=== PATIENT | female | born 1950 | race Caucasian/White ===

== ENCOUNTER 2016-09-10 20:51 | Inpatient (IN) ==
[2016-09-10] MEDS ORDERED: ONDANSETRON 4 MG/2 ML VIAL IV STA (21:36)
[2016-09-10] MEDS ORDERED: SODIUM CHLORIDE 0.9% 1,000 ML IV STA (21:36)
--- NOTE | 2016-09-10 21:36 | Emergency Department Note ---
Arrival - Arrival Chief Complaint: GI Bleed/Rectal Stated Complaint: RECTAL BLEEDING ED Nursing Triage Note: C/C low back pain, dark red rectal bleeding with clots. Has stage [address] Cassidy. Last dose of chemo pills 12/2014. No history of rectal bleeding Mode of Arrival: Ambulatory Time Seen by Provider: 09/10/16 21:35 - History of Present Illness HPI Narrative: Patient complains of bright red rectal bleeding 1 episode today preceded by low back pain. She sees Dr. Cassidy for her colon cancer and still takes oral chemo agents, taking her last one this route today. She says she has had no other problems and little aches and pains that she had experienced were controlled with Motrin. Today's back pain was worse. She denies any fever or chills. She has had some preceding diarrhea as well. Allergies/Adverse Reactions: Allergies Allergy/AdvReac Type Severity Reaction Status Date / Time No Known Allergies Allergy Unverified 09/10/16 21:15 Review of System - Review of System 12 point system: reviewed and no additional remarkable complaints except as stated Medical,Surgical,& Family Hx - Medical History Cardio: History of: Hypertension Endocrine: No history of: Diabetes Mellitus (IDDM), Diabetes Mellitus (NIDDM) Respiratory: History of: Lung Cancer Gastrointestinal: History of: Gastrointestinal Cancer (Stage 4 colon CA) - Surgical History Cardiac Surgeries: Patient Denies: Cardiac Catheterization Abdominal Surgeries: Surgical HX of: Cholecystectomy, Colonoscopy Reproductive Surgeries: Surgical HX of;: Hysterectomy - Social History Smoking Status: Never smoker Frequency of Alcohol Use: None Type of Drug Use: None Exam Physical Examination: General: Patient is well-developed and well-nourished with no acute distress noted. HEENT: The extraocular muscles are intact. Oropharynx i is dry t. There is no erythema or exudate. The tympanic membranes are shiny bilaterally. Neck: There is no adenopathy. Full range of motion is noted without pain. The trachea is midline. No JVD is present. Lungs: There is normal excursion of the chest with the lungs sounding clear bilaterally. No subcostal retractions are present. There is no point tenderness present. Heart: The heart has a regular rate and rhythm with no gallops or murmurs. Abdomen: The abdomen is nontender and nondistended with no rebound, guarding, or masses. Bowel sounds are normal. Hemoccult was noted to be positive Back: The back demonstrates a normal appearance with no evidence of trauma. Genitourinary: Not examined. Extremities: The extremities demonstrate no clubbing, cyanosis, or edema. The visualized range of motion is normal. They appear atraumatic. Neuro: Cranial nerves II through XII are checked and intact. There is no focal motor or sensory deficit seen in the extremities. Skin: Skin is warm and dry with no evidence of rash. Vital Signs: Vital Signs Temperature 99.6 F 09/10/16 21:22 Pulse Rate 112 H 09/10/16 21:22 Respiratory Rate 17 09/10/16 21:22 Blood Pressure 148/84 09/10/16 21:22 O2 Sat by Pulse Oximetry 97 09/10/16 21:10 Course - Consultations Consultation #1: Dr. Cassidy will admit the patient. Time: 23:11 Results - Labs CBC & BMP: 09/10/16 21:36 09/10/16 21:36 Lab Results: I have reviewed the patients labs - Diagnostic Findings Procedure: CT Abdomen and Pelvis: image reviewed by me (Progression of disease in the posterior right hepatic lobe and lung bases. Diverticular disease without evidence of diverticulitis.) Disposition Clinical Impression: Lower gastrointestinal hemorrhage, Metastatic colon cancer with progression Case discussed with: patient, patient's family Disposition: Still a Patient Condition: Stable Time of Disposition: 23:08
[2016-09-10] MEDS ORDERED: MORPHINE 2 MG/1 ML SYRINGE IV STA (21:37)
[2016-09-10 21:42] LABS: Basophils % 0.3 % (0.0-0.8); Eosinophils # 0.7 10*3/uL (0.0-0.87); Eosinophils % 7.3 % (0.00-10.9); Hematocrit 37.1 VOL% (35.7-47.0); Hemoglobin 11.4 GM/DL (12.0-16.0); Immature Granulocytes % 0.2 %; Immature Granulocytes Absolute 0.02 #; Lymphocytes # 4.2 10*3/uL (1.4-4.0); Lymphocytes % 46.3 % (21.3-54.2); Mean Corpuscular HGB Conc 30.7 GM/DL (32-36); Mean Corpuscular Hemoglobin 29 PG (27-34); Mean Corpuscular Volume 94.4 FL (87-102); Mean Platelet Volume 8.8 FL (9.6-12.0); Monocytes # 1.1 10*3/uL (0.11-0.8); Neutrophils # 3.1 10*3/uL (1.4-7.4); Neutrophils % 33.9 % (38.7-73.9); Platelet Count 233 T/CUMM (130-400); Red Blood Count 3.93 MC/CUMM (3.8-5.5); Red Cell Distribution Width 14.6 % (9.3-17.3)
[2016-09-10] MEDS ORDERED: MORPHINE 2 MG/1 ML SYRINGE ONE (21:44)
[2016-09-10] MEDS ORDERED: ONDANSETRON 4 MG/2 ML VIAL ONE (21:44)
[2016-09-10 21:49] LABS: INR 1.1; PT Patient Result 11.2 SECS
--- NOTE | 2016-09-10 21:56 | EKG Report ---
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
[2016-09-10 22:10] LABS: Alanine Aminotransferase 24 U/L (13-56); Albumin 3.2 G/DL (3.4-5.0); Alkaline Phosphatase 74 U/L (45-117); Aspartate Amino Transferase 37 U/L (0-37); Bilirubin,Total < 0.39 MG/DL (0.2-1.0); Blood Urea Nitrogen 13 MG/DL (7-18); Calcium 8.9 MG/DL (8.5-10.1); Glucose 107 MG/DL (74-106); Osmolality,Calculated 280.3 MOS/KG (273-304); Potassium 3.4 MMOL/L (3.5-5.1); Sodium 141 MMOL/L (136-145); Total Protein 8.2 G/DL (6.4-8.3)
[2016-09-10 22:17] LABS: Eosinophils 8 % (0-10); Lymphocytes 49 % (20-55); Segmented Neutrophils 38 % (50-85); Total Cells Counted 100
[2016-09-10 22:18] LABS: Atypical Lymphocytes Few; Platelet Estimate Normal
[2016-09-10 22:19] LABS: Poikilocytosis 1+; Tear Drop Cells Few
--- NOTE | 2016-09-10 23:07 | CT Report ---
CT abdomen pelvis Indication: Colon cancer, rectal bleeding Comparison: PET/CT 02 June 2012 Technique: Axial CT imaging of the abdomen and pelvis is performed with intravenous and oral contrast. Contrast dose is 100 cc of Omnipaque 350. Findings: Multiple pulmonary nodules are present in both lower lungs, largest is 2.[address] abdomen: The liver has a low-density area of poorly defined 4.1 cm in size in the right lobe. Smaller is seen more superiorly 1.3 cm in size. Spleen pancreas and adrenal glands are normal in size and enhancement. No evidence of focal lesion is demonstrated in these solid organs. Gallbladder has been removed. Kidneys are normal in size and enhancement. No evidence of hydronephrosis or nephrolithiasis is seen. The bowel caliber is normal and no wall thickening or adjacent inflammatory change is seen. No evidence of free fluid or free air is present. CT pelvis: There is poorly defined suggestion of some rectal wall thickening. Otherwise the pelvic bowel appears within normal limits. Bladder shows no evidence of abnormality. The pelvic organs show no evidence of abnormality Impression: Multiple hepatic and pulmonary metastatic lesions. Suggestion of some rectal wall thickening, poorly defined. No other abnormality seen. PROCEDURE INTERPRETED AT [facility] DEPARTMENT OF RADIOLOGY Final Report Signed by: Dr. Santo Blancas
[2016-09-10] MEDS ORDERED: traMADol 50 MG TABLET PO PRN (23:12)
[2016-09-10] MEDS ORDERED: diphenhydrAMINE CAP 25 MG CAPSULE PO PRN (23:12)
[2016-09-10] MEDS ORDERED: MYLANTA/LIDO VISC 2:1 300 ML BOTTLE SWISH/SPIT PRN (23:12)
[2016-09-10] MEDS ORDERED: chlorproMAZINE INJ 25 MG in SODIUM CHLORIDE 0.9% 100 ML IV PRN (23:12)
[2016-09-10] MEDS ORDERED: MYLANTA/LIDO VISC 2:1 300 ML BOTTLE SWISH/SWAL PRN (23:12)
[2016-09-10] MEDS ORDERED: LACTULOSE 20 GM/30 ML UDCUP PO PRN (23:12)
[2016-09-10] MEDS ORDERED: ONDANSETRON 4 MG/2 ML VIAL IV PRN (23:12)
[2016-09-10] MEDS ORDERED: MAGNESIUM HYDROXIDE SUSP 30 ML UDCUP PO PRN (23:12)
[2016-09-10] MEDS ORDERED: PROMETHAZINE INJ 25 MG in SODIUM CHLORIDE 0.9% 50 ML IV PRN (23:12)
[2016-09-10] MEDS ORDERED: guaiFENesin 200 MG/10 ML UDCUP PO PRN (23:12)
[2016-09-10] MEDS ORDERED: ACETAMINOPHEN 325 MG TABLET PO PRN (23:12)
[2016-09-10] MEDS ORDERED: LOPERAMIDE 2 MG CAPSULE PO PRN ×2 (23:12)
[2016-09-10] MEDS ORDERED: ALPRAZolam 0.25 MG TABLET PO PRN (23:12)
[2016-09-10] MEDS ORDERED: TEMAZEPAM 7.5 MG CAPSULE PO PRN (23:12)
[2016-09-10] MEDS ORDERED: BENZTROPINE 2 MG/2 ML AMP IV PRN (23:12)
[2016-09-10] MEDS ORDERED: chlorproMAZINE INJ 50 MG in SODIUM CHLORIDE 0.9% 100 ML IV PRN (23:12)
[2016-09-10] MEDS ORDERED: chlorproMAZINE 25 MG TABLET PO PRN (23:12)
[2016-09-10] MEDS ORDERED: ALUMINUM/MAGNES/SIMETH MAX STR 30 ML UDCUP PO PRN (23:12)
[2016-09-11] MEDS: SODIUM CHLORIDE 0.9% 1,000 ML IV SCH ×2 (00:30→15:56)
[2016-09-11 07:38] LABS: Hematocrit 32.5 VOL% (35.7-47.0); Hemoglobin 9.8 GM/DL (12.0-16.0)
--- NOTE | 2016-09-11 08:58 | Oncology History&Physical ---
Assessment and Plan (1) Lower gastrointestinal hemorrhage Status: Acute Assessment and plan: The patient's hematocrit and clinical course appears stable at this time. We will hold her nonsteroidals and repeat hematocrit in the a.m. [place] was provided as needed pain. We have discussed radiotherapy as a backup plan should bleeding continue and surgical intervention as a last resort only. Overall her life expectancy is fairly short given her lack of therapeutic choices. She has expressed to me strong desires for DO NOT RESUSCITATE during our conversations in the office setting. Current Visit: Yes History of Present Illness Chief complaint: Bright red blood per rectum History of present illness: Ms. Mcclellan is a 66 year old female With a multi-year history of metastatic colorectal cancer. She is currently on either fourth or fifth line oral therapy. She has large volume pulmonary metastasis. The patient never underwent resection of her primary tumor. She is reported back pain recently and has been using ibuprofen rather generously. This is in addition to a daily low-dose aspirin. She has had some rectal spotting since August 27 with one rather large episode last evening at home prompted her ER visit and subsequent admission. Home Medications Medication Instructions Recorded Confirmed Type Aspirin Chew Tab 81 mg PO QAM 09/11/16 09/11/16 History Ibuprofen 400 mg PO Q4-6H PRN 09/11/16 09/11/16 History Olmesartan/Hydrochlorothiazide 1 each PO QAM 09/11/16 09/11/16 History [Benicar Hct 40-12.5 mg Tablet] Verapamil HCl [Verapamil ER Cap] 240 mg PO BEDTIME 09/11/16 09/11/16 History Allergies Allergy/AdvReac Type Severity Reaction Status Date / Time No Known Allergies Allergy Unverified 09/10/16 21:15 Medical,Surgical,& Family Hx - Medical History Cardio: History of: Hypertension Endocrine: No history of: Diabetes Mellitus (IDDM), Diabetes Mellitus (NIDDM) Respiratory: History of: Lung Cancer Gastrointestinal: History of: Gastrointestinal Cancer (Stage 4 colon CA) Hematology: History of: Bleeding Problems Other: History of: Cancer (colorectal cancer w/lung (liver) mets) - Surgical History Cardiac Surgeries: Patient Denies: Cardiac Catheterization Abdominal Surgeries: Surgical HX of: Cholecystectomy, Colonoscopy Reproductive Surgeries: Surgical HX of;: Hysterectomy - Social History Smoking Status: Never smoker Frequency of Alcohol Use: None Type of Drug Use: None - Constitutional Constitutional: Absent: fever(s) - EENT Eye: Absent: loss of vision Ears: Absent: ear discharge, ear pain Nose, mouth and throat: Absent: neck mass, neck pain, odynophagia, sore throat - Cardiovascular Cardiovascular ROS IM: Absent: palpitations - Respiratory Respiratory: Absent: wheezing Exam - Constitutional Vitals: Period Temp Pulse Resp BP Sys/Mcnally Pulse Ox Last 24 Hr 97.6 F-98.8 F 97-109 18-20 134-167/53-79 97-98 General appearance: no acute distress, over weight - Head Head Exam: Present: normocephalic - Eye Eye Exam: Present: EOMI. Absent: conjunctival injection, periorbital swelling, scleral icterus - ENT ENT exam: Present: normal external ear exam, normal oropharynx - Neck Neck exam: Present: normal inspection. Absent: lymphadenopathy - Respiratory Respiratory exam: Present: CTAB. Absent: accessory muscle use, chest wall tenderness - Cardiovascular Cardiovascular exam: Present: RRR. Absent: bradycardia - GI/Abdominal GI/Abdominal exam: Absent: ascites, distended, firm, guarding, tenderness - Extremities Exam Extremities exam: Absent: edema - Neurological Exam Neurological exam: Present: alert, oriented X3 - Psychiatric Psychiatric exam: Present: normal affect, normal mood Results - Labs CBC & BMP: 09/11/16 07:29 09/10/16 21:36
[2016-09-11] MEDS: PANTOPRAZOLE 40 MG TABLET PO SCH (10:00)
[2016-09-11] MEDS: OLMESARTAN 20 MG TABLET PO SCH (10:02)
[2016-09-11] MEDS: hydroCHLOROthiazide 12.5 MG CAPSULE PO SCH (10:04)
[2016-09-11] MEDS ORDERED: VERAPAMIL SR 240 MG TABLET PO SCH (21:00)
[2016-09-12 03:21] LABS: Basophils % 0.2 % (0.0-0.8); Eosinophils # 0.5 10*3/uL (0.0-0.87); Eosinophils % 5.7 % (0.00-10.9); Hematocrit 32.1 VOL% (35.7-47.0); Immature Granulocytes % 0.2 %; Immature Granulocytes Absolute 0.02 #; Lymphocytes # 3.1 10*3/uL (1.4-4.0); Lymphocytes % 36.5 % (21.3-54.2); Mean Corpuscular HGB Conc 31.2 GM/DL (32-36); Mean Corpuscular Hemoglobin 29 PG (27-34); Mean Platelet Volume 9.4 FL (9.6-12.0); Monocytes # 1.1 10*3/uL (0.11-0.8); Monocytes % 12.8 % (1.7-12.7); Neutrophils # 3.8 10*3/uL (1.4-7.4); Neutrophils % 44.6 % (38.7-73.9); Platelet Count 228 T/CUMM (130-400); Red Blood Count 3.45 MC/CUMM (3.8-5.5); Red Cell Distribution Width 14.9 % (9.3-17.3); White Blood Count 8.5 T/CUMM (4-12)
[2016-09-12] MEDS: SODIUM CHLORIDE 0.9% 1,000 ML IV SCH (03:59)
[2016-09-12] MEDS: hydroCHLOROthiazide 12.5 MG CAPSULE PO SCH (08:37)
[2016-09-12] MEDS: OLMESARTAN 20 MG TABLET PO SCH (08:37)
[2016-09-12] MEDS: PANTOPRAZOLE 40 MG TABLET PO SCH (08:37)
[2016-09-12 08:52] VITALS: BP 132/71
--- NOTE | 2016-09-12 14:42 | Discharge Summary ---
DATE OF ADMISSION: 09/10/2016 DATE OF DISCHARGE: 09/12/2016 CONSULTATIONS: None. DIAGNOSES: 1. END-STAGE RECTAL CANCER. 2. HEMATOCHEZIA. 3. ACUTE BLOOD LOSS ANEMIA. HOSPITAL COURSE: This is a patient with a 4-year history of treated metastatic colon cancer. She is on her fourth or fifth line oral therapy with plans for best supportive care only at this point. S he was admitted with bright red blood per rectum. She was taking moderate amounts of ibuprofen as w ell as daily aspirin for back pain. This has been discontinued. We have monitored her hemoglobin o rayna a 36-hour period and it has remained stable. We will pursue best supportive care from this poin t forward. I have scheduled to see her in the office on 09/18. She is welcome to return to the [facility] for any further large bleeding episodes. She still reports small spotting with bowel movement s. Of note, her primary tumor was never resected due to the point she had metastatic disease on pre sentation. We discussed home hospice, but she does not feel this is necessary at t his time. Tramad ol prescription is given p.r.n. pain.
== END 2016-09-12 10:35 | disposition home or self-care (01) | DRG 378 ==
LOC: N.ED 20:51 → N.EDINP 23:12 → N.4E 23:36
PROVIDERS: ADMIT Specialist; ATTEND Specialist